=== PATIENT | male | born 1975 | race Caucasian/White ===

== ENCOUNTER 2022-09-04 13:23 | Outpatient (CLI) | payer BC, SELFPAY ==
[2022-09-04 14:24] LABS: Kit Draw Collected
== END 2022-09-04 13:24 | disposition home or self-care (01) ==
LOC: ANHGOSHLAB 13:25
PROVIDERS: PCP Family Medicine; Visit Provider Nurse Practitioner
DX: E11.9 Type 2 diabetes mellitus without complications (principal); E78.5 Hyperlipidemia, unspecified; I10 Essential (primary) hypertension
CPT/HCPCS: 36415